=== PATIENT | female | born 1965 | race Caucasian/White ===

== ENCOUNTER 2021-06-06 15:35 | Outpatient (REF) | payer OTHER, SELFPAY ==
--- NOTE | ~2021-06-06 | CT_ITS ---
EXAMINATION: CT CHEST SCREENING CLINICAL INFORMATION: Smoker. COMPARISON: CT chest from [facility] 03/19/2020 TECHNIQUE: Multidetector volumetric CT imaging of the chest is performed without contrast using low dose technique. Additional 2D coronal and sagittal reformatted images and axial 3D maximum intensity projection (MIP) images are generated on the CT workstation. This CT examination was performed using dose optimization techniques as appropriate, variously including the following: *Automated exposure control *Adjustment of mA and/or kV according to patient size (this includes techniques or standardized protocols for targeted exams where dose is matched to indication/reason for exam; i.e. extremities or head) *Use of iterative reconstruction technique DLP: 39 mGy-cm FINDINGS: LUNGS: The lungs are well expanded and clear of acute pneumonic process. Minimal atelectasis or scarring medial segment right middle lobe, stable. There are no pulmonary nodules, mass or consolidation. MEDIASTINUM: The thyroid lobes are symmetrical and normal. The central trachea and the bronchi are widely patent. Heart size and the great vessels are normal caliber. No pericardial effusion seen. No abnormal sized mediastinal or hilar lymph nodes seen. PLEURA: There is no pleural effusion. No pleural mass or thickening. AXILLA: There are small shotty lymph nodes in bilateral axillae. The chest wall appears unremarkable. UPPER ABDOMEN: Visualized liver, spleen, gallbladder, and bilateral adrenal glands are unremarkable. OSSEOUS STRUCTURES: No lytic or sclerotic process seen. CT/CT lung screening IMPRESSION: Minimal chronic atelectasis or scarring medial segment right middle lobe. Otherwise unremarkable CT chest exam. No major change from the last study. ASSESSMENT: Lung-RADS category 1: Negative. RECOMMENDATION: Low-dose annual CT chest exam.
== END 2021-06-06 15:36 | disposition home or self-care (01) ==
LOC: HO.CT 15:35
PROVIDERS: Visit Provider Internal Medicine
DX: Z12.2 Encounter for screening for malignant neoplasm of respiratory organs (principal); F17.200 Nicotine dependence, unspecified, uncomplicated
CPT/HCPCS: 71271

== ENCOUNTER 2021-10-09 19:04 | Emergency (ER) | payer OTHER, SELFPAY ==
--- NOTE | ~2021-10-09 | XR_ITS ---
EXAMINATION: XR CHEST CLINICAL INFORMATION: Weakness COMPARISON: Supervisor Telephone Answering Service film from CT dated 06/06/2021 TECHNIQUE: Frontal view of the chest was obtained. FINDINGS: No acute finding. Lung gee are grossly clear. There is no effusion. The cardiac silhouette is comparable. The hilar structures do not appear pathologically enlarged. XR/XR chest 1V IMPRESSION: No acute finding.
[2021-10-09 19:21] VITALS: BP 141/71; BP 161/87; PULSE 68; PULSE 76; RESP 16; TEMP 36.6; O2SAT 97; O2SAT 98; BMI 26.9
--- NOTE | 2021-10-09 19:27 | ECG_ITS ---
Test Reason : WEAKNESS Blood Pressure : / mmHG Vent. Rate : 073 BPM Atrial Rate : 073 BPM P-R Int : 160 ms QRS Dur : 074 ms QT Int : 398 ms P-R-T Axes : 052 000 035 degrees QTc Int : 438 ms Normal sinus rhythm with sinus arrhythmia Normal ECG No previous ECGs available Referred By: Christiane Bunch Electronically Signed By:COLEEN PIÑA MD
[2021-10-09] MEDS: 0.9 % Sodium Chloride 1,000 ML 999 ML IV ×2 (19:34→22:23)
--- NOTE | 2021-10-09 19:42 | ED_ITS ---
HPI - Weakness General Chief complaint: Weakness Stated complaint: weakness Time Seen by Provider: 10/09/21 19:18 Source: patient and EMS Mode of arrival: EMS History of Present Illness HPI Narrative: 56-year-old female with a past medical history of anxiety, asthma, depression, presenting to the ED sent in from [facility] complaining of generalized weakness/fatigue x1 week with associated chills. Admits soft PCP on Sunday had outpatient labs that were unremarkable however today symptoms became worse. Reports lightheadedness and nausea. 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 Complaint: generalized weakness and lack of energy Onset (ago): day(s) Related Data Allergies Allergy/AdvReac Type Severity Reaction Status Date / Time No Known Allergies Allergy Verified 10/09/21 19:27 Review of Systems Review of Systems: Constitutional: No Fever, No Chills, No Night Sweats, + Fatigue, + Malaise ENT/Mouth: No Ear Pain, No Nasal Congestion, No sore throat, No Rhinorrhea, No Swallowing Difficulty Eyes: No Eye Pain, No Swelling, No Redness, No Vision Changes Cardiovascular: No Chest Pain, No SOB, No Dyspnea on Exertion, No Orthopnea, No Edema, No Palpitations Respiratory: No Cough, No Sputum, No Dyspnea Gastrointestinal: + Nausea, No Vomiting, No Diarrhea, No Constipation, No Abdominal pain Genitourinary: No Urinary Frequency, No Hematuria, No Flank Pain Musculoskeletal: No joint pain, No Myalgias, No Joint Swelling Skin: No Skin Lesions, No rash Neuro: No Weakness, No Numbness, No Paresthesias, No Loss of Consciousness, + lightheaded, No Headache Yes all other systems are reviewed and are negative Neurologic: Denies Abnormal speech present PENDING SALE TO [facility] Past Medical History Attestation statement: The following information was validated with the patient. Medical History Anxiety Asthma Depression Social History Social History Advance Directives: No Advance Directives Information Provided: No Physical Exam Vital Signs: Vital Signs: Last Vital Signs Temp 97.9 F 10/09/21 19:21 Pulse 68 10/09/21 19:21 Resp 16 10/09/21 19:21 BP 141/71 H 10/09/21 19:21 Pulse Ox 97 10/09/21 19:21 BMI result Body Mass Index 26.9 Const: General: cooperative, healthy appearing, no acute distress, alert and awake Orientation/consciousness: patient oriented x3 Limitations: no limitations HEENT: Head: Yes normal to inspection and Yes atraumatic Ears: hearing grossly normal bilaterally General nose exam: Normal external nose present Face and sinus: Yes normal facial exam Mouth: Normal oral and palatal mucosa present Throat: Yes posterior oropharynx normal and Yes tonsils normal Eyes: General: appearance normal, both eyes and all related structures Pupils: Equal, round and reactive pupils present EOM: EOMs intact bilaterally Neck: Neck: Yes normal visual inspection and Yes no meningeal signs Resp: Effort & Inspection: normal respiratory effort and no respiratory distress Auscultation: clear to auscultation bilaterally, no rales, no rhonchi and no wheezes Cardio: Rate: regular rate Heart sounds: S1 normal heart sound present and S2 normal heart sound present GI: Inspection: Yes normal to inspection Palpation (GI): Soft to palpation, nontender, no guarding and not rigid Skin: Rashes: no rashes Wounds: no wounds Neuro: General: patient oriented x3, gait normal, tone normal, moves all extremities, no meningeal signs, no focal motor deficits and CN's II-XI intact bilaterally Cranial nerves: Yes CN's II-XII intact bilaterally, Yes Equal, round and reactive pupils present and Yes Bilaterally intact EOM present Cognition (Neuro): normal cognition Speech: No Abnormal speech present Gait exam (Neuro): Normal gait present Motor exam (neuro): 5/5 motor strength present throughout, Pronator motor function not present and no tremor noted Coordination: [id number] test normal Romberg Test: Negative Extrem: General: Yes normal to inspection, Yes no pedal edema and Yes no calf tenderness Course Course Course Narrative: -2034--no leukocytosis. BUN mildly elevated to 21 > c/w dehydration, labs otherwise unremarkable. Troponin negative -UA with 15 ketones/not infected. > 2 L IVF ordered. Will also p.o. challenge -TSH WNL -2100--ED care transferred to SIDNEY Muniz pending CXR, IVF, p.o. challenge and anti cipated DC home MDM - Weakness MDM Narrative Medical decision making narrative: 56-year-old female with a past medical history of anxiety, asthma, depression, presenting to the ED sent in from [facility] complaining of generalized weakness/fatigue x1 week with associated chills. Reports lightheadedness and nausea. On exam vital signs stable, NAD/nontoxic appearing, no focal neuro deficits, lungs CTA. Concern for viral illness vs metabolic abnormalities. Rule out infectious etiologies. Low concern for ICH/CVA Plan: EKG, labs, UA, CXR, IVF, Orthostatics, re-evaluate Differential Diagnosis Differential diagnosis: Likely hypothyroidism Medical Records Attestation: I reviewed the patient's medical records. Lab Data Attestation: I reviewed the patient's lab results. Result diagrams: 10/09/21 19:54 10/09/21 19:54 Labs: Lab Results 10/09/21 10/09/21 10/09/21 Range/Units 19:51 19:51 19:54 WBC 6.9 (4.8-10.8) X10*3/uL RBC 4.28 (4.20-5.50) X10*6/uL Hgb 12.5 (12.0-16.0) g/dl Hct 38.6 (37.0-47.0) % MCV 90.2 (80.0-98.0) fL MCH 29.2 (27.0-33.0) pg MCHC 32.4 (31.0-35.0) g/dl RDW 12.6 (11.0-16.0) % Plt Count 255 (160-400) X10*3/uL MPV 9.0 L (9.4-12.3) fL Immature Gran % (Auto) 0.4 (0.0-0.4) % Neut % (Auto) 75.4 H (45-73) % Lymph % (Auto) 17.6 L (20-40) % Coles % (Auto) 5.6 (2-11) % Eos % (Auto) 0.6 (0-4) % Baso % (Auto) 0.4 (0-2) % Lymph # (Auto) 1.2 (1.2-4.9) X10*3/uL Coles # (Auto) 0.4 (0.1-1.2) X10*3/uL Eos # (Auto) 0.0 (0.0-0.4) X10*3/uL Baso # (Auto) 0.0 (0.0-0.2) X10*3/uL Abs Immat Gran (auto) 0.03 (0.00-0.03) X10*3/uL Absolute Neuts (auto) 5.2 (2.0-8.3) x10*3/uL Absolute Nucleated RBC 0.000 (0.0-0.012) X10*3/uL Nucleated RBC % (auto) 0.0 (0.0-0.2) /100WBC Sodium (135-145) mmol/L Potassium (3.3-5.1) mmol/L Chloride (96-108) mmol/L Carbon Dioxide (22-29) mmol/L Anion Gap (12-20) BUN (9-16) mg/dL Creatinine (0.5-1.4) mg/dL Estim Creat Clear Calc Estimated GFR Random Glucose (60-115) mg/dL Calcium (8.4-10.2) mg/dL Magnesium (1.6-2.6) mg/dL Total Bilirubin (0.0-1.0) mg/dL Direct Bilirubin (0.0-0.5) mg/dL AST (5-31) U/L ALT (0-31) U/L Alkaline Phosphatase (39-117) U/L Troponin I High Sens (<3.5-17.0) ng/L Total Protein (6.5-8.0) g/dL Albumin (3.5-5.0) g/dL TSH (0.32-4.0) uIU/mL Urine Color YELLOW Urine Appearance CLEAR Urine pH 7.5 (5.0-8.0) Ur Specific Harvey 1.010 (1.005-1.025) Urine Protein NEG (NEG-TRACE) MG/DL Urine Glucose (UA) NEG (NEG) MG/DL Urine Ketones 15 (NEG) MG/DL Urine Blood NEG (NEG) Urine Nitrite NEG (NEG) Ur Leukocyte Esterase NEG (NEG) COVID-19 (NOELLE) Negative (Negative) COVID-19 Clin Com See Note 10/09/21 10/09/21 Range/Units 19:54 19:54 WBC (4.8-10.8) X10*3/uL RBC (4.20-5.50) X10*6/uL Hgb (12.0-16.0) g/dl Hct (37.0-47.0) % MCV (80.0-98.0) fL MCH (27.0-33.0) pg MCHC (31.0-35.0) g/dl RDW (11.0-16.0) % Plt Count (160-400) X10*3/uL MPV (9.4-12.3) fL Immature Gran % (Auto) (0.0-0.4) % Neut % (Auto) (45-73) % Lymph % (Auto) (20-40) % Coles % (Auto) (2-11) % Eos % (Auto) (0-4) % Baso % (Auto) (0-2) % Lymph # (Auto) (1.2-4.9) X10*3/uL Coles # (Auto) (0.1-1.2) X10*3/uL Eos # (Auto) (0.0-0.4) X10*3/uL Baso # (Auto) (0.0-0.2) X10*3/uL Abs Immat Gran (auto) (0.00-0.03) X10*3/uL Absolute Neuts (auto) (2.0-8.3) x10*3/uL Absolute Nucleated RBC (0.0-0.012) X10*3/uL Nucleated RBC % (auto) (0.0-0.2) /100WBC Sodium 134 L (135-145) mmol/L Potassium 3.8 (3.3-5.1) mmol/L Chloride 99 (96-108) mmol/L Carbon Dioxide 27 (22-29) mmol/L Anion Gap 12 (12-20) BUN 21 H (9-16) mg/dL Creatinine 1.30 (0.5-1.4) mg/dL Estim Creat Clear Calc 45.5 Estimated GFR 43 Random Glucose 119 H (60-115) mg/dL Calcium 9.5 (8.4-10.2) mg/dL Magnesium 2.3 (1.6-2.6) mg/dL Total Bilirubin 0.7 (0.0-1.0) mg/dL Direct Bilirubin 0.2 (0.0-0.5) mg/dL AST 21 (5-31) U/L ALT 22 (0-31) U/L Alkaline Phosphatase 61 (39-117) U/L Troponin I High Sens < 3.5 (<3.5-17.0) ng/L Total Protein 6.9 (6.5-8.0) g/dL Albumin 4.2 (3.5-5.0) g/dL TSH 0.63 (0.32-4.0) uIU/mL Urine Color Urine Appearance Urine pH (5.0-8.0) Ur Specific Harvey (1.005-1.025) Urine Protein (NEG-TRACE) MG/DL Urine Glucose (UA) (NEG) MG/DL Urine Ketones (NEG) MG/DL Urine Blood (NEG) Urine Nitrite (NEG) Ur Leukocyte Esterase (NEG) COVID-19 (NOELLE) (Negative) COVID-19 Clin Com ECG Data Attestation: I personally reviewed and interpreted this ECG as follows: ECG interpretation date: 10/09/21 ECG interpretation time: 19:42 Interpretation: EKG normal sinus rhythm with sinus arrhythmia. Rate of 73. QRS 74. No S TIGIST/nonischemic Discharge Plan Discharge Clinical Impression: Generalized weakness Patient Disposition: Home, Self-Care Instructions: Weakness (ED) Additional Instructions: Blood work is showing that you are mildly dehydrated. You tested negative for COVID-19. You need to rest and push oral fluids Please follow-up with your doctor If her symptoms persist or worsen, your unable to eat or drink, develops fever, Persist nausea or vomiting please return to the ED Referrals: Physician,Unknown J [Primary Care Provider] - 2 days
[2021-10-09 19:59] LABS: MANUAL DIFF FLAG NO
[2021-10-09 20:01] LABS: Basophils Percent Auto 0.4 % (0-2); Eosinophils Percent Auto 0.6 % (0-4); Hematocrit 38.6 % (37.0-47.0); Hemoglobin 12.5 g/dl (12.0-16.0); Imm Gran Abs Auto 0.03 X10*3/uL (0.00-0.03); Imm Gran Pct Auto 0.4 % (0.0-0.4); Lymphocytes Absolute Auto 1.2 X10*3/uL (1.2-4.9); Lymphocytes Percent Auto 17.6 % (20-40); Mean Corpuscular HGB Conc 32.4 g/dl (31.0-35.0); Mean Corpuscular Hemoglobin 29.2 pg (27.0-33.0); Mean Corpuscular Volume 90.2 fL (80.0-98.0); Monocytes Absolute Auto 0.4 X10*3/uL (0.1-1.2); Monocytes Percent Auto 5.6 % (2-11); Neutrophils Absolute Auto 5.2 x10*3/uL (2.0-8.3); Neutrophils Percent Auto 75.4 % (45-73); Platelet Count 255 X10*3/uL (160-400); Red Blood Count 4.28 X10*6/uL (4.20-5.50); Red Cell Distribution Width 12.6 % (11.0-16.0); White Blood Count 6.9 X10*3/uL (4.8-10.8)
[2021-10-09 20:18] LABS: Alanine Aminotransferase 22 U/L (0-31); Albumin Level 4.2 g/dL (3.5-5.0); Alkaline Phosphatase 61 U/L (39-117); Anion Gap 12 (12-20); Aspartate Amino Transferase 21 U/L (5-31); Bilirubin Direct 0.2 mg/dL (0.0-0.5); Bilirubin Total 0.7 mg/dL (0.0-1.0); Blood Urea Nitrogen 21 mg/dL (9-16); Calcium 9.5 mg/dL (8.4-10.2); Carbon Dioxide 27 mmol/L (22-29); Chloride 99 mmol/L (96-108); Creatinine Clr Calc Pharmacy 45.5; Estimated Glomerular Filt Rate 43; Glucose Random 119 mg/dL (60-115); Magnesium 2.3 mg/dL (1.6-2.6); Potassium 3.8 mmol/L (3.3-5.1); Sodium 134 mmol/L (135-145); Total Protein 6.9 g/dL (6.5-8.0)
[2021-10-09 20:22] LABS: Troponin-I High Sensitivity < 3.5 ng/L (<3.5-17.0)
[2021-10-09 20:29] LABS: Appearance Urine CLEAR; Color Urine YELLOW; Glucose Urine UA NEG (NEG); Leukocyte Esterase Urine NEG (NEG); Nitrite Urine NEG (NEG); PH 7.5 (5.0-8.0); Urine Blood NEG (NEG); Urine Ketones 15 MG/DL (NEG); Urine Protein NEG (NEG-TRACE)
[2021-10-09 20:39] LABS: TSH reflex Free T4 0.63 uIU/mL (0.32-4.0)
[2021-10-09 20:44] LABS: COVID-19 Test Negative (Negative); IDNOW Serial# 16C4AD1C
[2021-10-09 22:25] VITALS: BP 124/65; PULSE 79; RESP 18; TEMP 36.9; O2SAT 98
== END 2021-10-09 23:16 | disposition home or self-care (01) ==
PROVIDERS: Physician Assistant; Emergency Provider Emergency Medicine Emergency Medical Services
DX: R53.1 Weakness (principal); F41.9 Anxiety disorder, unspecified; F33.1 Major depressive disorder, recurrent, moderate; Z20.822 Contact with and (suspected) exposure to COVID-19; Z79.899 Other long term (current) drug therapy
CPT/HCPCS: 36415; 71045; 80048; 80076; 81003; 83735; 84443; 84484; 85025; 87635; 93005; 96360; 99284

== ENCOUNTER 2022-06-16 13:40 | Emergency (ER) | payer OTHER, SELFPAY ==
--- NOTE | ~2022-06-16 | XR_ITS ---
EXAMINATION: RIGHT ANKLE. RIGHT FOOT. LEFT ANKLE. LEFT FOOT. CLINICAL INFORMATION: Ankle pain and foot pain COMPARISON: None TECHNIQUE: 3 views right ankle. 3 views right foot. 3 views left ankle. 3 views left foot. FINDINGS: Right ankle: Mild diffuse soft tissue swelling. The mortise is intact. There appears to be a small ankle joint effusion. There is no fracture or dislocation or destructive lesion. Right foot: No fracture or dislocation or destructive process. Joint spaces are preserved. Left foot: Transverse fracture through the base of the fifth metatarsal. No erosive change. No other fractures are seen. Alignment is preserved. Left ankle: Mortise intact. No fracture or dislocation or destructive lesion in the ankle proper. The fifth metatarsal fracture is again observed. XR/XR foot RT min 3V IMPRESSION: Fracture through the base of the left fifth metatarsal.
--- NOTE | ~2022-06-16 | XR_ITS ---
EXAMINATION: RIGHT ANKLE. RIGHT FOOT. LEFT ANKLE. LEFT FOOT. CLINICAL INFORMATION: Ankle pain and foot pain COMPARISON: None TECHNIQUE: 3 views right ankle. 3 views right foot. 3 views left ankle. 3 views left foot. FINDINGS: Right ankle: Mild diffuse soft tissue swelling. The mortise is intact. There appears to be a small ankle joint effusion. There is no fracture or dislocation or destructive lesion. Right foot: No fracture or dislocation or destructive process. Joint spaces are preserved. Left foot: Transverse fracture through the base of the fifth metatarsal. No erosive change. No other fractures are seen. Alignment is preserved. Left ankle: Mortise intact. No fracture or dislocation or destructive lesion in the ankle proper. The fifth metatarsal fracture is again observed. XR/XR foot LT min 3V IMPRESSION: Fracture through the base of the left fifth metatarsal.
--- NOTE | ~2022-06-16 | XR_ITS ---
EXAMINATION: RIGHT ANKLE. RIGHT FOOT. LEFT ANKLE. LEFT FOOT. CLINICAL INFORMATION: Ankle pain and foot pain COMPARISON: None TECHNIQUE: 3 views right ankle. 3 views right foot. 3 views left ankle. 3 views left foot. FINDINGS: Right ankle: Mild diffuse soft tissue swelling. The mortise is intact. There appears to be a small ankle joint effusion. There is no fracture or dislocation or destructive lesion. Right foot: No fracture or dislocation or destructive process. Joint spaces are preserved. Left foot: Transverse fracture through the base of the fifth metatarsal. No erosive change. No other fractures are seen. Alignment is preserved. Left ankle: Mortise intact. No fracture or dislocation or destructive lesion in the ankle proper. The fifth metatarsal fracture is again observed. XR/XR ankle LT 2V IMPRESSION: Fracture through the base of the left fifth metatarsal.
--- NOTE | ~2022-06-16 | XR_ITS ---
EXAMINATION: RIGHT ANKLE. RIGHT FOOT. LEFT ANKLE. LEFT FOOT. CLINICAL INFORMATION: Ankle pain and foot pain COMPARISON: None TECHNIQUE: 3 views right ankle. 3 views right foot. 3 views left ankle. 3 views left foot. FINDINGS: Right ankle: Mild diffuse soft tissue swelling. The mortise is intact. There appears to be a small ankle joint effusion. There is no fracture or dislocation or destructive lesion. Right foot: No fracture or dislocation or destructive process. Joint spaces are preserved. Left foot: Transverse fracture through the base of the fifth metatarsal. No erosive change. No other fractures are seen. Alignment is preserved. Left ankle: Mortise intact. No fracture or dislocation or destructive lesion in the ankle proper. The fifth metatarsal fracture is again observed. XR/XR ankle RT 2V IMPRESSION: Fracture through the base of the left fifth metatarsal.
--- NOTE | 2022-06-16 14:53 | ED_ITS ---
HPI - Extremity Problem General Chief complaint: Fall <SIDNEY Calloway - Last Filed: 06/16/22 14:58> Stated complaint: R & L Foot Injury 06/16/22 <SIDNEY Calloway - Last Filed: 06/16/22 14:58> Time Seen by Provider: 06/16/22 15:59 <SIDNEY Calloway - Last Filed: 06/16/22 14:58> Source: patient <Malgorzata Mcintyre NP - Last Filed: 06/17/22 01:22> Mode of arrival: wheelchair <Malgorzata Mcintyre NP - Last Filed: 06/17/22 01:22> Limitations: no limitations <Malgorzata Mcintyre NP - Last Filed: 06/17/22 01:22> History of Present Illness HPI Narrative: 57-year-old female presents for evaluation for bilateral lower extremity pain and swelling after tripping and falling on a sidewalk. <Malgorzata Mcintyre NP - Last Filed: 06/17/22 01:22> MD Complaint: extremity pain and extremity swelling <Malgorzata Mcintyre NP - Last Filed: 06/17/22 01:22> Onset (ago): hour(s) (Within the hour of arrival) <Malgorzata Mcintyre NP - Last Filed: 06/17/22 01:22> Pain Consistency: constant <Malgorzata Mcintyre NP - Last Filed: 06/17/22 01:22> Location: left, right and lower extremity <Malgorzata Mcintyre NP - Last Filed: 06/17/22 01:22> Quality: aching <Malgorzata Mcintyre NP - Last Filed: 06/17/22 01:22> Relieving factors: elevation <Malgorzata Mcintyre NP - Last Filed: 06/17/22 01:22> Exacerbating factors: range of motion, weight bearing, walking and palpation <Malgorzata Mcintyre NP - Last Filed: 06/17/22 01:22> Associated symptoms: denies other symptoms <Malgorzata Mcintyre NP - Last Filed: 06/17/22 01:22> Related Data Home medications: Previous Rx's Medication Instructions Recorded ibuprofen 600 mg tablet 600 mg PO QID PRN pain #60 tabs 06/16/22 <SIDNEY Calloway - Last Filed: 06/16/22 14:58> Allergies/Adverse reactions: Allergies Allergy/AdvReac Type Severity Reaction Status Date / Time No Known Allergies Allergy Verified 06/16/22 14:54 <SIDNEY Calloway - Last Filed: 06/16/22 14:58> Review of Systems Review of Systems: Constitutional: No Fever, No Chills Cardiovascular: No Chest Pain, No SOB Respiratory: No Cough, No Dyspnea Gastrointestinal: No Nausea, No Vomiting, No Diarrhea, No abdominal Pain Genitourinary: No Dysuria, No Hematuria Musculoskeletal: positive left and right ankle and foot pain, No Myalgias, No Joint Swelling Skin: No Skin lacerations, No rash Neuro: No Weakness, No Numbness, No Paresthesias, No Loss of Consciousness, No Dizziness, No Headache <Malgorzata Mcintyre NP - Last Filed: 06/17/22 01:22> Yes all other systems are reviewed and are negative <Malgorzata Mcintyre NP - Last Filed: 06/17/22 01:22> FOR[facility]LY [facility] Past Medical History Attestation statement: The following information was validated with the patient. <Malgorzata Mcintyre NP - Last Filed: 06/17/22 01:22> Source: old records reviewed <Malgorzata Mcintyre NP - Last Filed: 06/17/22 01:22> Medical History: Medical History Anxiety Asthma Depression <SIDNEY Calloway - Last Filed: 06/16/22 14:58> Social History Social History: Social History Advance Directives: No Advance Directives Information Provided: No <SIDNEY Calloway Last Filed: 06/16/22 14:58> Physical Exam Vital Signs: Vital Signs: Last Vital Signs Temp 98.1 F 06/16/22 14:56 Pulse 63 06/16/22 14:56 Resp 16 06/16/22 14:56 BP 135/65 06/16/22 14:56 Pulse Ox 100 06/16/22 14:56 O2 Del Method 06/16/22 14:56 BMI result Body Mass Index 26.5 <SIDNEY Calloway - Last Filed: 06/16/22 14:58> Vital Signs: Last Vital Signs Temp 98.1 F 06/16/22 14:56 Pulse 63 06/16/22 14:56 Resp 16 06/16/22 14:56 BP 135/65 06/16/22 14:56 Pulse Ox 100 06/16/22 14:56 O2 Del Method 06/16/22 14:56 BMI result Body Mass Index 26.5 <Malgorzata Mcintyre NP - Last Filed: 06/17/22 01:22> Appearance: Alert. Oriented X3. Mild distress. Eyes: Pupils equal, round and reactive to light. ENT: Pharynx normal. Neck: Normal inspection. Neck supple. CVS: Normal heart rate and rhythm. Pulses normal. Respiratory: No respiratory distress. Breath sounds normal. Abdomen: Soft and nontender. Skin: Skin warm and dry. Normal skin color. Normal skin turgor. Extremities: Left ankle, swelling to the lateral malleolar process, x-rays indicate 5th metatarsal fracture. Right ankle lateral malleolar swelling. Findings consistent withBr ankle sprain. isk capillary refill and equal pulses bilaterally. Decreased range of motion to each extremity. Neuro: No motor deficit. No sensory deficit. Cranial nerves 2-12 intact. <Malgorzata Mcintyre NP - Last Filed: 06/17/22 01:22> Course Course Course Narrative: RME--57yo F w/pmhx anxiety, asthma, depression presenting to the ED c/o bilateral foot and ankle pain and swelling s/p mechanical slip and fall on sidewalk [employer]. Reports foot got caught in pavement. Denies sx prior to fall or head trauma/ LOC. Has been minimally ambulatory since incident. R ankle swelling and L foot swelling noted on exam XRs & PO Motrin ordered in triage <SIDNEY Calloway - Last Filed: 06/16/22 14:58> RME--57yo F w/pmhx anxiety, asthma, depression presenting to the ED c/o bilateral foot and ankle pain and swelling s/p mechanical slip and fall on sidewalk [employer]. Reports foot got caught in pavement. Denies sx prior to fall or head trauma/ LOC. Has been minimally ambulatory since incident. R ankle swelling and L foot swelling noted on exam XRs & PO Motrin ordered in triage 57-year-old female presents for injury sustained from a trip and fall. She was walking on a sidewalk, tripped on a great and twisted both ankles. X-rays were completed while she was in the emergency department waiting room. Patient has a left 5th metatarsal fracture and a right ankle sprain. Plan of care is for posterior short-leg to the left lower extremity, and walking boot to the right ankle. Patient requires crutches as left lower extremity is nonweightbearing. I did refer this patient to Dr. Vasquez. Patient declined narcotic pain medication and would only like Motrin. Patient has brisk capillary refill, and equal pedal pulses. Neurovascularly intact. Range of motion not performed secondary to injuries. Patient verbalized understanding of and agrees to plan of care discharge home. Verbalized understanding of signs and symptoms indicating need for emergent intervention. <Malgorzata Mcintyre NP - Last Filed: 06/17/22 01:22> Medications Administered Discontinued Medications Generic Name Dose Route Start Last Admin Trade Name Freq PRN Reason Stop Dose Admin Ibuprofen 800 mg 06/16/22 14:58 06/16/22 15:00 Ibuprofen 800 Mg Tablet PO 06/16/22 14:59 800 mg ONCE ONE Administration <SIDNEY Calloway - Last Filed: 06/16/22 14:58> Medications Administered Discontinued Medications Generic Name Dose Route Start Last Admin Trade Name Freq PRN Reason Stop Dose Admin Ibuprofen 800 mg 06/16/22 14:58 06/16/22 15:00 Ibuprofen 800 Mg Tablet PO 06/16/22 14:59 800 mg ONCE ONE Administration <Malgorzata Mcintyre NP - Last Filed: 06/17/22 01:22> Medical Decision Making Medical Decision Making Differential Diagnoses: Differential diagnosis (Fracture, dislocation, sprain, effusion) <Malgorzata Mcintyre NP - Last Filed: 06/17/22 01:22> Discussion of test interpretation with radiology: Discussion of test interpretation with radiology TECHNIQUE: 3 views right ankle. 3 views right foot. 3 views left ankle. 3 views left foot.? FINDINGS: Right ankle: Mild diffuse soft tissue swelling. The mortise is intact. There appears to be a small ankle joint effusion. There is no fracture or dislocation or destructive lesion. Right foot: No fracture or dislocation or destructive process. Joint spaces are preserved. Left foot: Transverse fracture through the base of the fifth metatarsal. No erosive change. No other fractures are seen. Alignment is preserved. Left ankle: Mortise intact. No fracture or dislocation or destructive lesion in the ankle proper. The fifth metatarsal fracture is again observed. XR/XR ankle LT 2V IMPRESSION: Fracture through the base of the left fifth metatarsal <Malgorzata Mcintyre NP - Last Filed: 06/17/22 01:22> Prescription medication was considered but ultimately not given after discussion with patient/family. (e.g., pain medication, antiviral, antibiotic): Prescriptions considered but not given I considered prescription management with: Pain Medication Additional Comments: Patient requests only NSAID for pain management. <Malgorzata Mcintyre NP - Last Filed: 06/17/22 01:22> Discharge Plan Discharge Clinical Impression: Fracture of fifth metatarsal bone of left foot, Right ankle sprain <SIDNEY Calloway - Last Filed: 06/16/22 14:58> Patient Disposition: Home, Self-Care <SIDNEY Calloway - Last Filed: 06/16/22 14:58> Instructions: Ankle Sprain (ED), Crutch Instructions (ED), Foot Fracture in Adults (ED), R.I.C.E. Treatment (ED), Walking Boot (ED) <SIDNEY Calloway - Last Filed: 06/16/22 14:58> Additional Instructions: You were evaluated for injury sustained from a fall. You have a left 5th metatarsal fracture. We placed a posterior short-leg splint to that lower extremity. Do not remove the splint until you see orthopedics. You cannot place any weight on that foot. You have a right ankle sprain. We placed you in a walker boot to help with support while use your crutches. Take Motrin 600 mg every 6 hours as needed for pain management, alternate with Tylenol 650 mg every 6 hours as needed. Write down what time you take medications to prevent accidental overdose. Follow-up with orthopedics. I have referred you to Dr. Vasquez Thank you for choosing this emergency department for evaluation. Please f ollow-up with primary care physician as needed. Return to the emergency department for any new, concerning, or worsening symptoms. <SIDNEY Calloway - Last Filed: 06/16/22 14:58> Prescriptions: New ibuprofen 600 mg tablet 600 mg PO QID PRN (Reason: pain) Qty: 60 0RF <SIDNEY Calloway - Last Filed: 06/16/22 14:58> Referrals: Ab Vasquez MD [Physician] - 3 days (Left 5th metatarsal fracture, right ankle sprain) <SIDNEY Calloway - Last Filed: 06/16/22 14:58> Stand Alone Forms: Work/School Release <SIDNEY Calloway - Last Filed: 06/16/22 14:58> Interventions: ED Discharge Assessment Last Done: 06/16/22 17:12 <SIDNEY Calloway - Last Filed: 06/16/22 14:58> Discharge Date/Time: 06/16/22 17:14 <SIDNEY Calloway - Last Filed: 06/16/22 14:58>
[2022-06-16 14:56] VITALS: BP 135/65; PULSE 63; RESP 16; TEMP 36.7; O2SAT 100; BMI 26.5
[2022-06-16] MEDS: Ibuprofen 800 MG TABLET PO (15:00)
== END 2022-06-16 17:14 | disposition home or self-care (01) ==
PROVIDERS: Emergency Provider Emergency Medicine
DX: S92.352A Displaced fracture of fifth metatarsal bone, left foot, initial encounter for closed fracture (principal); M25.571 Pain in right ankle and joints of right foot; M79.672 Pain in left foot; M79.671 Pain in right foot; W01.0XXA Fall on same level from slipping, tripping and stumbling without subsequent striking against object, initial encounter; Y93.9 Activity, unspecified; Y92.480 Sidewalk as the place of occurrence of the external cause; Y99.9 Unspecified external cause status; Z79.899 Other long term (current) drug therapy
CPT/HCPCS: 73600; 73630; 99283

== ENCOUNTER 2022-08-17 06:42 | Outpatient (REF) | payer OTHER, SELFPAY ==
--- NOTE | ~2022-08-17 | XR_ITS ---
EXAMINATION: XR foot LT min 3V, XR foot RT min 3V CLINICAL INFORMATION: Reason for Exam M79.672 - Pain in left foot COMPARISON: 06/16/2022 TECHNIQUE: 3 views of the bilateral feet XR/XR foot LT min 3V FINDINGS/IMPRESSION: * Redemonstration of fracture of the base of the left fifth metatarsal, unchanged since 06/16/2022. * Joint spaces are maintained without significant degenerative change. * No soft tissue abnormality.
--- NOTE | ~2022-08-17 | XR_ITS ---
EXAMINATION: XR foot LT min 3V, XR foot RT min 3V CLINICAL INFORMATION: Reason for Exam M79.672 - Pain in left foot COMPARISON: 06/16/2022 TECHNIQUE: 3 views of the bilateral feet XR/XR foot RT min 3V FINDINGS/IMPRESSION: * Redemonstration of fracture of the base of the left fifth metatarsal, unchanged since 06/16/2022. * Joint spaces are maintained without significant degenerative change. * No soft tissue abnormality.
== END 2022-08-17 06:43 | disposition home or self-care (01) ==
LOC: HO.HOSX 06:42
PROVIDERS: Visit Provider Physician Assistant
DX: S93.401A Sprain of unspecified ligament of right ankle, initial encounter (principal); M79.672 Pain in left foot
CPT/HCPCS: 73630

== ENCOUNTER 2022-08-26 08:13 | Outpatient (REF) | payer OTHER, SELFPAY ==
[2022-08-26 08:34] LABS: MANUAL DIFF FLAG NO
[2022-08-26 08:43] LABS: Basophils Absolute Auto 0.1 X10*3/uL (0.0-0.2); Basophils Percent Auto 0.9 % (0-2); Eosinophils Absolute Auto 0.3 X10*3/uL (0.0-0.4); Eosinophils Percent Auto 3.9 % (0-4); Hematocrit 38.2 % (37.0-47.0); Hemoglobin 12.2 g/dl (12.0-16.0); Imm Gran Abs Auto 0.02 X10*3/uL (0.00-0.03); Imm Gran Pct Auto 0.3 % (0.0-0.4); Lymphocytes Absolute Auto 2.5 X10*3/uL (1.2-4.9); Mean Corpuscular HGB Conc 31.9 g/dl (31.0-35.0); Mean Platelet Volume 9.1 fL (9.4-12.3); Monocytes Absolute Auto 0.6 X10*3/uL (0.1-1.2); Monocytes Percent Auto 9.1 % (2-11); Neutrophils Absolute Auto 3.3 x10*3/uL (2.0-8.3); Neutrophils Percent Auto 48.8 % (45-73); Platelet Count 298 X10*3/uL (160-400); Red Cell Distribution Width 13.8 % (11.0-16.0); White Blood Count 6.7 X10*3/uL (4.8-10.8)
[2022-08-26 08:52] LABS: Estimated Average Glucose 103 mg/dL; Hemoglobin A1c % 5.2 %
[2022-08-26 09:19] LABS: Alanine Aminotransferase 13 U/L (0-31); Albumin Level 4.2 g/dL (3.5-5.0); Alkaline Phosphatase 70 U/L (39-117); Anion Gap 11 (12-20); Aspartate Amino Transferase 16 U/L (5-31); Bilirubin Total 0.6 mg/dL (0.0-1.0); Blood Urea Nitrogen 15 mg/dL (9-16); Calcium 9.2 mg/dL (8.4-10.2); Carbon Dioxide 28 mmol/L (22-29); Chloride 107 mmol/L (96-108); Cholesterol 181 mg/dL; Estimated Glomerular Filt Rate > 60; Glucose Random 89 mg/dL (60-115); HDL Cholesterol 60 mg/dL; LDL Cholesterol Calculated 112 mg/dl; Potassium 4.5 mmol/L (3.3-5.1); Sodium 141 mmol/L (135-145); Total Protein 6.7 g/dL (6.5-8.0); Triglycerides 47 mg/dL
[2022-08-26 09:40] LABS: TSH reflex Free T4 1.06 uIU/mL (0.32-4.0); Vitamin D 25-OH Total 40.3 ng/mL (>30)
[2022-08-26 13:37] LABS: CT PCR NOT DETECTED (Not Detect.); NG PCR NOT DETECTED (Not Detect.)
[2022-08-28 08:24] LABS: HIV AB/AG Nonreactive (Nonreactive); HIV Num 1 0.07 S/CO (0.00-0.99)
[2022-08-28 08:36] LABS: Syphilis Screen Nonreactive (Nonreactive)
== END 2022-08-26 08:14 | disposition home or self-care (01) ==
LOC: HO.LAB 08:13
PROVIDERS: PCP Family Medicine; Visit Provider Family Medicine
DX: Z11.4 Encounter for screening for human immunodeficiency virus [HIV] (principal); Z11.3 Encounter for screening for infections with a predominantly sexual mode of transmission; N20.0 Calculus of kidney; J44.9 Chronic obstructive pulmonary disease, unspecified; G47.33 Obstructive sleep apnea (adult) (pediatric); Z87.81 Personal history of (healed) traumatic fracture
CPT/HCPCS: 0353U; 80053; 80061; 82306; 83036; 84443; 85025; 86780; 87389

== ENCOUNTER 2022-09-12 15:22 | Outpatient (REF) | payer OTHER, SELFPAY ==
--- NOTE | ~2022-09-12 | CT_ITS ---
EXAMINATION: CT CHEST SCREENING CLINICAL INFORMATION: Half pack per day 38 pack years. COMPARISON: None. TECHNIQUE: Multidetector volumetric CT imaging of the chest is performed without contrast using low dose technique. Additional 2D coronal and sagittal reformatted images and axial 3D maximum intensity projection (MIP) images are generated on the CT workstation. This CT examination was performed using dose optimization techniques as appropriate, variously including the following: *Automated exposure control *Adjustment of mA and/or kV according to patient size (this includes techniques or standardized protocols for targeted exams where dose is matched to indication/reason for exam; i.e. extremities or head) *Use of iterative reconstruction technique DLP: 46 mGy-cm FINDINGS: LUNGS: The lungs are expanded and clear of acute pneumonic process. Minimal platelike atelectatic changes seen right middle lobe There is no pulmonary nodule, mass or consolidation. MEDIASTINUM: The thyroid lobes are symmetric and normal. The central trachea and the bronchi widely patent. Heart size and the great vessels are normal caliber. No pericardial effusion. No abnormal size mediastinal or hilar lymph nodes. CORONARY ARTERY CALCIFICATION: Trace coronary artery calcification seen. PLEURA: There is no pleural effusion. No pleural mass or thickening. AXILLA: No lymphadenopathy. UPPER ABDOMEN: Visualized liver, spleen, pancreas and bilateral adrenal glands are unremarkable. OSSEOUS STRUCTURES: No aggressive lytic or sclerotic process seen.. CT/CT lung screening IMPRESSION: Unremarkable CT chest exam. ASSESSMENT: Lung-RADS category 1: Negative RECOMMENDATION: Low-dose annual CT chest.
== END 2022-09-12 15:23 | disposition home or self-care (01) ==
LOC: HO.CT 15:22
PROVIDERS: Visit Provider Physician Assistant Medical
DX: Z12.2 Encounter for screening for malignant neoplasm of respiratory organs (principal); F17.210 Nicotine dependence, cigarettes, uncomplicated
CPT/HCPCS: 71271

== ENCOUNTER 2022-11-08 16:00 | Outpatient (RCR) | payer OTHER, SELFPAY ==
--- NOTE | 2022-09-28 09:49 | MHC.PT.EP ---
[facility] [place] Office [place] Office [place] Office [address] Alfa Banegas [address] [phone] F: [phone] F: [phone] F: [phone] F: [phone] Physical Therapy Plan of Care Date of Evaluation: Date of Surgery: Diagnosis: RIGHT ankle sprain Assessment: Patient is a 57 y.o. female who is referred to PT by SIDNEY Padron with Dx of RIGHT ankle sprain. She also presents with LEFT foot fracture at base of 5th metatarsal from same injury but not referred for LEFT by MD. However, her LEFT ankle/foot does present with deficits due to period of immobilization. Patient impairments include pain, edema, limited ROM, weakness, balance impairments. Patient current functional limitations are prolonged walking, hiking, jogging, dance lessons 1x/week ballet (balance), stair use (descending). Patient will benefit from skilled PT to address aforementioned impairments and functional limitations to meet established goals. Frequency and Duration: The patient will be seen 2x/week for 4 weeks Short Term Goals: 2 weeks Patient demonstrates consistency and independence with HEP to self manage symptoms. Patient presents without swelling in RIGHT ankle at lateral malleoli 23.5cm to normalize gait pattern. Body Finisher Goals: 4 weeks Patient presents with increased RIGHT ankle DF 5 degrees to be able to perform reciprocal step downs. Patient presents with increased RIGHT ankle eversion strength 5/5 to be able to resume dance class. Treatment Plan: Modalities to reduce pain, spasms and effusion. Manual therapy to restore motion and function. Therapeutic exercise to improve strength and flexibility. Neuromuscular re-education for posture and balance. Therapeutic activities to return to functional activities of daily living. Electronically signed by: Lars Vázquez, PT, DPT Please sign and return to therapist. Thank you for your referral.
--- NOTE | 2023-01-02 11:39 | MHC.PT.DC ---
[facility] [place] Office [place] Office [place] Office [address] Alfa Banegas [address] [phone] F: [phone] F: [phone] F: [phone] F: [phone] Physical Therapy Discharge Report Diagnosis: RIGHT ankle sprain Date of Surgery: Date of Evaluation: 09/27/22 Date of Discharge: 01/02/23 Treatments to Date: 5 Cancellations to Date: 6 No Shows to Date: Discharge Status: Improved Function Independent with HEP Patient Elected to Stop Discharge Summary: Patient did well with PT treatment. She cancelled a few visits and called on 11/22/22. She said that her right ankle was feeling better and she wanted to discontinue PT. Electronically signed by: Lars Vázquez, PT, DPT Please sign and return to therapist. Thank you for your referral.
== END 2023-01-02 11:39 | disposition home or self-care (01) ==
LOC: HO.PT 16:00
PROVIDERS: PCP Family Medicine; Visit Provider Physician Assistant
DX: S93.401A Sprain of unspecified ligament of right ankle, initial encounter (principal)
CPT/HCPCS: 97110; 97140; 97161; 97530

== ENCOUNTER 2023-05-10 15:22 | Outpatient (REF) | payer OTHER, SELFPAY | END 2023-05-10 15:23 | disposition home or self-care (01) | LOC: HO.MAMMO 15:22 | PROVIDERS: PCP Family Medicine; Visit Provider Family Medicine | DX: Z12.31 Encounter for screening mammogram for malignant neoplasm of breast (principal) | CPT/HCPCS: 77063; 77067 ==

== ENCOUNTER → 2023-05-10 15:45 | Outpatient (BNV) | payer OTHER, SELFPAY | PROVIDERS: PCP Family Medicine; Visit Provider Radiology Diagnostic Radiology | DX: Z12.31 Encounter for screening mammogram for malignant neoplasm of breast (principal) | CPT/HCPCS: 77063; 77067 ==

== ENCOUNTER 2024-05-16 14:32 | Outpatient (AMB) | payer BC, SELFPAY ==
--- NOTE | 2024-05-16 10:27 | A.OFFVIS_ITS ---
Intake Visit Reasons: Current Smoker Allergies No Known Allergies Allergy (Verified 08/17/22 10:56) HPI HPI Current Smoker: Details: Telehealth/phone SDM visit for this 59 smoker with a 30+PYH. Patient started smoking at age 16 for 43 years at 1/2-1ppd. now 1/2ppd. . Occasional marijuana use. Denies second hand smoke exposure. Denies exposure to chemicals or substances like asbestos. . Denies known family history of lung cancer. Denies personal history of cancers. Denies chest CT in last year. . Denies recent travel outside the [place]. Denies recent respiratory illness or recent hospitalization for respiratory issues. Reports testing positive for COVID. Admits receiving COVID Vaccine.x4. . Denies fever, chills, new/worsening cough, hemoptysis, hoarseness or dysphagia. Denies significant chest pain, significant dyspnea or unintentional weight loss. Patient Lung Cancer Screening Questionnaire reviewed with patient by provider. . Shared Decision Making Completed. Patient meets criteria. Discussed in detail with patient, the risk vs benefit of LDCT screening. Patient consents to proceed with scan. Discussed smoking cessation. . Has had LDCT prior through program - initially entered through PCP. [place] visit complete to have SDM on file. [facility] Medical History (Updated 05/16/24 @ 10:33 by Casandra Marr PA-C) Nicotine dependence, cigarettes, uncomplicated Asthma Anxiety Depression Surgical History (Updated 05/16/24 @ 10:30 by Casandra Marr PA-C) History of laparoscopy History of tonsillectomy Social History (Updated 05/16/24 @ 10:33 by Casandra Marr PA-C) Patient Tobacco Use Status: Current everyday Tobacco user Tobacco use type: Cigarette Years Smoked: (onset 16yo, 1/2-1ppd x 43yrs, now 1/2ppd - 30+PYH) Current occupational status: employed Current occupation: [employer] Telehealth Telehealth Telehealth Platform: Telephone Location of provider rendering services: practice address Location of patient: address on file Patient Identification confirmed using: Name, : Yes Telehealth method: voice only Patient verbally consented to treatment: Yes Patient verbally consented to billing insurance company: Yes Patient informed of any privacy concerns related to visit: Yes Minutes spent on Phone/Video with Pt.: 15 Assessment & Plan Assessment & Plan (1) Nicotine dependence, cigarettes, uncomplicated: Comment: (onset 16yo, 1/2-1ppd x 44yrs, now 1/2ppd - 30+PYH) Code(s): F17.210 - Nicotine dependence, cigarettes, uncomplicated Category: Medical Plan: - SDM visit completed today via phone. - Patient meets criteria for LDCT for lung cancer screening purposes and is asymptomatic. - Smoking cessation counseling offered. Patients can always call [phone]. - Will arrange for a LDCT scan of the chest for screening purposes at [facility]. - Risks, benefits, and alternatives were discussed in detail and the patient agrees to proceed. - Risks discussed include but are not limited to: radiation exposure, anxiety during testing and while awaiting results, false negatives, false positives and possibility of additional intervention such as further imaging or surgical procedures for benign disease. - Benefits are obviously detection of lung cancer at an early stage which can lead to improved outcomes. - Discussed the importance of screening program compliance with adherence to yearly LDCT scan as scheduled - or sooner interval scans for personalized screening regimen. - Discussed follow up plan. Our office will send a letter discussing results and if needed set up phone call and office visit based on CT findings. - Patient educated on results categorization and the management decisions for suspicious findings potentially found on the screening LDCT scan. Any patient with a Lung RADS score of 3 or 4 will be reviewed by a multidisciplinary team at [facility] to form a plan of action in regards to scan findings. - If further work up is warranted for a suspicious lung finding this will be followed by the Lung Cancer Screening program in conjunction with the Thoracic Surgery Department at [facility]. - A copy of the office note and LDCT will be sent to the patient's PCP - as well as documentation on any associated further plans of care. - Incidental findings on LDCT are the PCP's responsibility. These findings are indicated with an S finding on the LDCT Assessment. A note discussing the findings will be sent to the PCP who is then responsible for further management. - All questions answered.? Coding Level of Care Code Lung Cancer Screening G0296 Diagnoses Nicotine dependence, cigarettes, uncomplicated F17.210
== END 2024-05-16 14:33 | disposition home or self-care (01) ==
LOC: HO.HPS 14:32
PROVIDERS: PCP Family Medicine; Visit Provider Physician Assistant Medical
DX: F17.210 Nicotine dependence, cigarettes, uncomplicated (principal)
CPT/HCPCS: G0296

== ENCOUNTER 2024-06-24 15:35 | Outpatient (REF) | payer BC, SELFPAY ==
--- OUTSIDE RECORDS SUMMARY | 2024-06-24 15:37 | XMS_ITS ---
Author Name [facility] Organization Unknown History of Medication Use Medication Directions Dispensed Refills Start Date End Date Stat betamethasone dipropionate (DIPROLENE) 0.05 % ointment Apply topically 2 (two) times a day. 02/11/2023 active ARIPiprazole (ABILIFY) 2 MG tablet Take 2 mg by mouth daily. 02/11/2023 active buPROPion (WELLBUTRIN XL) 300 MG 24 hr tablet Take 300 mg by mouth daily. 02/11/2023 active ARIPiprazole (ABILIFY) 2 MG tablet Take 2 mg by mouth daily. 02/11/2023 active predniSONE (DELTASONE) 20 MG tablet Take 3 tablets for 4 days, then 2 tablets for 4 days, and then 1 tablet for 4 days. Take with food. 02/11/2023 active budesonide-formoterol (Symbicort) 160-4.5 MCG/ACT inhaler symbicort 160-4.5 mcg/act aero 02/11/2023 active amphetamine-dextroamph etamine (ADDERALL XR) 5 MG 24 hr capsule Take by mouth daily. 02/11/2023 active Problems Problem Status Onset Date Problem Type Date of Resoluti on Source Poison anjelica dermatitis active EncounterDiagnosisAct [facility]
== END 2024-06-24 15:36 | disposition home or self-care (01) ==
LOC: HO.MAMMO 15:35
PROVIDERS: PCP Family Medicine; Visit Provider Family Medicine
DX: Z12.31 Encounter for screening mammogram for malignant neoplasm of breast (principal)
CPT/HCPCS: 77063; 77067

== ENCOUNTER → 2024-06-24 15:45 | Outpatient (BNV) | payer BC, SELFPAY | PROVIDERS: PCP Family Medicine; Visit Provider Internal Medicine | DX: Z12.31 Encounter for screening mammogram for malignant neoplasm of breast (principal) | CPT/HCPCS: 77063; 77067 ==

== ENCOUNTER 2024-07-10 15:27 | Outpatient (REF) | payer BC, SELFPAY ==
--- NOTE | ~2024-07-10 | CT_ITS ---
CLINICAL HISTORY: Z87.891 - Personal history of nicotine dependence CT lung cancer screening (LDCT) Comparison: 09/12/2022 Technique: Axial CT images of the chest using low-dose technique. Referring provider counseled the patient on shared decision-making for LDCT screening. Additional counseling was provided on smoking cessation. Effective radiation dose total: DLP 38.1 mGycm, CTDIvol 1.1 mGy. Findings: Lung: There are no new solid or semi solid lesions, airspace or interstitial consolidation. Coronary artery calcifications: Mild Limited upper abdomen: Unremarkable Other: None Impression: 1: Normal Category 1: Normal; continue annual screening Category 2: Benign appearance or behavior, continue annual screening Category 3: Probably benign, [address] recommended Category 4A: Suspicious, [address] recommended; may consider PET/CT Category 4B: Suspicious, Additional diagnostics and/or tissue sampling recommended Category 4X: Suspicious, Additional diagnostics and/or tissue sampling recommended Category 0: Recalls (incomplete screen due to Incomplete coverage, Noise, Respiratory motion, Expiration, Obscured by acute abnormality) This document has been electronically signed by: Deion Fowler MD on 07/11/2024 17:52:08
== END 2024-07-10 15:28 | disposition home or self-care (01) ==
LOC: HO.CT 15:27
PROVIDERS: PCP Family Medicine; Visit Provider Physician Assistant Medical
DX: Z12.2 Encounter for screening for malignant neoplasm of respiratory organs (principal); Z87.891 Personal history of nicotine dependence
CPT/HCPCS: 71271

== ENCOUNTER → 2024-07-10 15:29 | Outpatient (BNV) | payer BC, SELFPAY | PROVIDERS: PCP Family Medicine; Visit Provider Specialist | DX: Z87.891 Personal history of nicotine dependence (principal) | CPT/HCPCS: 71271 ==